=== PATIENT | male | born 1990 | race American Indian/Alaskan Native ===

== ENCOUNTER 2020-08-24 14:41 | Emergency (ER) | payer SELFPAY ==
[2020-08-24 14:48] VITALS: BP 159/92
[2020-08-24] MEDS ORDERED: IBUPROFEN 600 MG TAB PO ONE (17:44)
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
== END 2020-08-24 19:21 | disposition home or self-care (01) ==
LOC: ED 14:41
DX: S46.812A Strain of other muscles, fascia and tendons at shoulder and upper arm level, left arm, initial encounter (principal); S39.012A Strain of muscle, fascia and tendon of lower back, initial encounter; Z91.013 Allergy to seafood; V89.2XXA Person injured in unspecified motor-vehicle accident, traffic, initial encounter; Y93.89 Activity, other specified; Y92.89 Other specified places as the place of occurrence of the external cause; Y99.8 Other external cause status
CPT/HCPCS: 99283